=== PATIENT | female | born 1960 | race Caucasian/White ===

== ENCOUNTER → 2017-06-02 | Outpatient (REF) | payer OTHER | LOC: M SMT 17:35 | PROVIDERS: ATTEND Nurse Practitioner Women's Health | DX: N39.3 Stress incontinence (female) (male) (principal) ==

== ENCOUNTER → 2017-10-06 | Outpatient (REF) | payer OTHER ==
[2017-10-09 00:07] LABS: Candida species Negative (Negative); Gardnerella vaginalis Positive (Negative); Trichamonas vaginalis Negative (Negative)
== END ==
LOC: M SMT 18:01
PROVIDERS: ATTEND Specialist
DX: R39.15 Urgency of urination (principal)

== ENCOUNTER → 2025-06-02 | Outpatient (CLI) | payer OTHER | LOC: M WHC 13:29 | PROVIDERS: ATTEND Student in an Organized Health Care Education/Training Program | DX: Z12.31 Encounter for screening mammogram for malignant neoplasm of breast (principal); R92.323 Mammographic fibroglandular density, bilateral breasts ==

== ENCOUNTER → 2025-10-04 | Outpatient (REF) | payer MEDICARE, OTHER | LOC: M LAB REF 11:56 | PROVIDERS: ATTEND Physician Assistant | DX: B34.9 Viral infection, unspecified (principal) ==